=== PATIENT | male | born 1985 | race Two or more races ===

== ENCOUNTER 2017-02-05 15:27 | Emergency (ER) | payer SELFPAY ==
[~2017-02-05] VITALS: Ht 180.3 cm; Wt 81.6 kg
--- NOTE | 2017-02-05 16:26 | PHYS DOC ---
Past Medical History Past Medical History: Asthma Additional Past Medical Histor: CYSTICERCOSIS Past Surgical History: Other Additional Past Surgical Histo: HERNIA REPAIR Additional Information: .05 PPD Additional Information: DAILY Drug Use: Cocaine, Marijuana Social History Narrative: REPORTS DOING COCAINE ON THURSDAY Adult General Chief Complaint Chief Complaint: HEADACHE HPI HPI Patient is a 31 year old [male] who presents with [2 weeks of intermittent MAJANO's , no blurry vision or fever, not sudden onset, not worst of life. no weakness to arms or legs. able to walk. no n/v/d. hx 20 yr ago cystercircosis treated in [place]. no marijuana use for couple weeks but did do cocaine last Thursday.] Review of Systems Review of Systems Constitutional: Denies fever or chills [] Eyes: Denies change in visual acuity, redness, or eye pain [] HENT: Denies nasal congestion or sore throat [] Respiratory: Denies cough or shortness of breath [] Cardiovascular: No additional information not addressed in HPI [] GI: Denies abdominal pain, nausea, vomiting, bloody stools or diarrhea [] : Denies dysuria or hematuria [] Musculoskeletal: Denies back pain or joint pain [] Integument: Denies rash or skin lesions [] Neurologic: Denies headache, focal weakness or sensory changes [] Endocrine: Denies polyuria or polydipsia all neg except as marked in HPI] Current Medications Current Medications Current Medications Medications (Trade) Dose Ordered Sig/Sami Start Time Stop Time Status Last Admin Dose Admin Diphenhydramine HCl (Benadryl) 25 mg 1X ONCE 02/05/17 16:45 02/05/17 16:46 DC 02/05/17 17:01 25 MG Ketorolac Tromethamine (Toradol) 30 mg 1X ONCE 02/05/17 16:45 02/05/17 16:46 DC 02/05/17 16:55 30 MG Metoclopramide HCl (Reglan) 10 mg 1X ONCE 02/05/17 16:45 02/05/17 16:46 DC 02/05/17 16:57 10 MG Sodium Chloride 1,000 ml @ 1,000 mls/hr 1X ONCE 02/05/17 16:45 02/05/17 17:44 DC 02/05/17 16:52 1,000 MLS/HR Allergies Allergies Allergies Coded Allergies Type Severity Reaction Last Updated Verified No Known Drug Allergies 02/05/17 No Physical Exam Physical Exam Constitutional: Well developed, well nourished, no acute distress, non-toxic appearance. [] HENT: Normocephalic, atraumatic, bilateral external ears normal, oropharynx moist, no oral exudates, nose normal. [] Eyes: PERRLA, EOMI, conjunctiva normal, no discharge. [] Neck: Normal range of motion, no tenderness, supple, no stridor. [] Cardiovascular:Heart rate regular rhythm, no murmur [] Lungs & Thorax: Bilateral breath sounds clear to auscultation [] Abdomen: Bowel sounds normal, soft, no tenderness, no masses, no pulsatile masses. [] Skin: Warm, dry, no erythema, no rash. [] Back: No tenderness, no CVA tenderness. [] Extremities: No tenderness, no cyanosis, no clubbing, ROM intact, no edema. [] Neurologic: Alert and oriented X 3, normal motor function, normal sensory function, no focal deficits noted. [] Psychologic: Affect normal, judgement normal, mood normal. [] Current Patient Data Vital Signs Vital Signs Date Time Temp Pulse Resp B/P (MAP) Pulse Ox O2 Delivery O2 Flow Rate FiO2 02/05/17 18:23 48 98/67 (77) 99 Room Air 02/05/17 15:55 98.8 20 98.8 EKG EKG EKG sinus rhythm rate of 65 no STEMI no ischemic changes my interpretation [] Radiology/Procedures Radiology/Procedures CT head wo:[Negative per radiology report] Course & Med Decision Making Course & Med Decision Making Pertinent Labs and Imaging studies reviewed. (See chart for details) CT head negative patient improved with treatment Reexamination prior to dismissal demonstrated the patient's pain was resolved he had a normal neurologic exam normal CT; no indication for lumbar puncture consultation or admission at this time. [] Dragon Disclaimer Dragon Disclaimer This electronic medical record was generated, in whole or in part, using a voice recognition dictation system. Departure Departure Impression: Primary Impression: Headache Disposition: HOME, SELF-CARE Condition: IMPROVED Referrals: NO PCP (PCP) Patient Instructions: General Headache Without Cause, [id number] ROSALES MOY MD Feb 05, 2017 16:25
[2017-02-05] MEDS ORDERED: diphenhydrAMINE 50 MG/ML VIAL IVP ONE (16:45)
[2017-02-05] MEDS ORDERED: IV NORMAL SALINE 1000ML BAG 1,000 ML IV ONE (16:45)
[2017-02-05] MEDS ORDERED: METOCLOPRAMIDE HCL 10 MG/2 ML VIAL. IV ONE (16:45)
[2017-02-05] MEDS ORDERED: KETOROLAC TROMETHAMINE 30 MG/ML INJ. IV ONE (16:45)
--- NOTE | 2017-02-05 17:03 | RAD ---
CT of the head without contrast, 02/05/2017: History: Headache, history of cysticercosis The ventricles are within normal limits in size. There is no shift of the midline structures. There is no evidence of acute intracranial hemorrhage or mass effect. IMPRESSION: No acute intracranial abnormality is detected. PQRS Compliance Statement: One or more of the following individualized dose reduction techniques were utilized for this examination: 1. Automated exposure control 2. Adjustment of the mA and/or kV according to patient size 3. Use of iterative reconstruction technique
[2017-02-05 18:23] VITALS: BP 98/67
--- NOTE | 2017-02-06 06:05 | EKG ---
[facility] [address] [place] [address] Test Date: 2017-02-05 Test Time: 16:01:25 Pat Name: PUJA GRAHAM Department: Room: Gender: M Claims Correspondence Clerk: : 1985 Requested By: ROSALES MOY Order Number: [id number] Reading MD: Latrell Arboleda Measurements Intervals [place] Rate: 65 P: 35 HI: 148 QRS: -6 QRSD: 132 T: -9 QT: 414 QTc: 431 Interpretive Statements SINUS RHYTHM RIGHT BUNDLE BRANCH BLOCK Electronically Signed On 02-10-2017 7:12:49 CDT by Latrell Arboleda
== END 2017-02-05 18:23 | disposition home or self-care (01) ==
LOC: ER 15:27
DX: R51 Headache (principal); J45.909 Unspecified asthma, uncomplicated; F14.10 Cocaine abuse, uncomplicated; F12.10 Cannabis abuse, uncomplicated
CPT/HCPCS: 70450; 93005; 96361; 96374; 96375; 99284; J1200; J1885; J2765; J7030